=== PATIENT | male | born 2000 | race Caucasian/White ===

== ENCOUNTER 2022-07-12 12:05 | Emergency (ER) | payer SELFPAY | END 2022-07-12 13:35 | disposition home or self-care (01) | LOC: KA.ED 12:05 | DX: K52.29 Other allergic and dietetic gastroenteritis and colitis (principal); E73.9 Lactose intolerance, unspecified; Z20.822 Contact with and (suspected) exposure to COVID-19 | CPT/HCPCS: 36415; 71046; 80053; 85025; 99283; 99284; U0002 ==

== ENCOUNTER 2022-07-13 15:29 | Emergency (ER) | payer SELFPAY ==
[2022-07-13] MEDS ORDERED: Sodium Chloride 0.9% 10 ML Syringe FLUSH PRN (15:41)
[2022-07-13 16:05] LABS: ANION GAP 26.4 mmol/L (5-15); CHLORIDE,CL 103 mmol/L (98-107); SODIUM,NA 142 mmol/L (136-145)
[2022-07-13 16:29] LABS: ESTIMATED GFR 102 mL/min (>=60)
[2022-07-13 16:31] LABS: BARBITURATE SCREEN,URINE NEGATIVE (NEGATIVE); BENZODIAZEPINES SCREEN,URINE NEGATIVE (NEGATIVE); TCA SCREEN,URINE NEGATIVE (NEGATIVE); THC SCREEN,URINE 50 NG/ML NEGATIVE (NEGATIVE)
[2022-07-13] MEDS: Sodium Chloride 0.9% 50 ML IV SCH (16:45)
[2022-07-13] MEDS: Iopamidol 755 Mg/ML 100 ML Bottle IV ONE (16:45)
[2022-07-13] MEDS: Sodium Chloride 0.9% 1,000 ML IV ONE (17:23)
== END 2022-07-13 17:36 | disposition home or self-care (01) ==
LOC: KA.ED 15:29
DX: R10.32 Left lower quadrant pain (principal); K90.49 Malabsorption due to intolerance, not elsewhere classified; R21 Rash and other nonspecific skin eruption; E80.7 Disorder of bilirubin metabolism, unspecified
CPT/HCPCS: 36415; 74177; 80053; 80305-QW; 81001; 82150; 83605; 83690; 85025; 86140; 99284; 99285; Q9967